=== PATIENT | male | born 1955 | race Caucasian/White ===

== ENCOUNTER 2020-11-22 11:09 | Inpatient (IN) | payer MEDICAID ==
[~2020-11-22] VITALS: Ht 170.2 cm; Wt 92.6 kg
[~2020-11-22 11:09] MED LIST: AMLO-489 PO; ASPI-394 PO; BENA40TA8 PO; ERGO1CAP6 PO; HYDR-2551 PO; METF-370 PO; METO-6 PO
[2020-11-22] MEDS ORDERED: SODIUM CHLORIDE 0.9% 1,000 ML IV ONE (11:45)
[2020-11-22 12:32] LABS: Basophils # (auto) 0 10 ^3/uL (0-0.2); Basophils % (auto) 0.3 % (0.0-2.0); Eosinophils # (auto) 0 10 ^3/uL (0-0.8); Eosinophils % (auto) 0.1 % (0.0-7.0); Hematocrit 27.1 % (41.0-53.0); Hemoglobin 9.1 g/dL (13.5-17.5); Lymphocytes # (auto) 0.5 10 ^3/uL (0.4-5.4); Lymphocytes % (auto) 3.3 % (10.0-50.0); Mean Corpuscular Hemoglobin 31.3 pg (28.0-32.0); Mean Corpuscular Hgb Conc. 33.7 g/dL (32.0-36.0); Mean Corpuscular Volume 92.8 fL (80.0-100.0); Monocytes # (auto) 0.6 10 ^3/uL (0-1.3); Monocytes % (auto) 4.7 % (0.0-12.0); Neutrophils # (auto) 12.6 10 ^3/uL (1.6-8.6); Neutrophils % (auto) 91.6 % (37.0-80.0); Platelet Count (auto) 368 10^3/uL (140-450); Red Blood Cells 2.92 10^6/uL (4.5-5.90); Red Cell Distribution Width 13.4 % (11.8-14.3); White Blood Cell 13.7 10^3/uL (4.4-10.8)
[2020-11-22 12:49] LABS: INR 1.1 (0.9-1.15); Partial Thromboplastin Time 33.3 sec (23.0-31.2)
[2020-11-22 12:56] LABS: Albumin 2.8 g/dL (3.4-5.0); Anion Gap 15 (5-15); Blood Urea Nitrogen 74 mg/dL (7-18); Calcium 7.8 mg/dL (8.5-10.1); Carbon Dioxide 21 mmol/L (21-32); Chloride 98 mmol/L (98-107); Glucose 96 mg/dL (74-106); Potassium 3.5 mmol/L (3.5-5.1); Sodium 134 mmol/L (136-145)
[2020-11-22 13:05] LABS: Alanine Aminotransferase 11 U/L (16-61); Alkaline Phosphatase 59 U/L (45-117); Aspartate Aminotransferase 6 U/L (15-37); BUN/Creatinine Ratio 3.9; Bilirubin, Total 0.4 mg/dL (0.2-1.0); GFR African American 3 mL/min; GFR Non-African American 3 mL/min; Total Protein 7.6 g/dL (6.4-8.2)
[2020-11-22] MEDS ORDERED: DEXTROSE 10% 1,000 ML IV ONE (13:45)
[2020-11-22] MEDS ORDERED: MORPHINE SULF INJ 2 MG/ML SYRINGE 1ML IV PRN ×2 (14:00→20:30)
[2020-11-22] MEDS ORDERED: NITROGLYCERIN 0.4 MG SL TAB SL PRN ×2 (14:00→20:30)
[2020-11-22] MEDS ORDERED: AMLO-496 PO (14:43)
[2020-11-22] MEDS ORDERED: FURO40TA4 PO (14:43)
[2020-11-22] MEDS ORDERED: LOSA-39 PO (14:43)
[2020-11-22] MEDS ORDERED: DOCU1CAP31 PO (14:43)
[2020-11-22] MEDS ORDERED: TERA2CAP45 PO (14:43)
[2020-11-22] MEDS ORDERED: CALC667C PO (14:43)
[2020-11-22] MEDS ORDERED: CALC0.5C PO (14:43)
[2020-11-22] MEDS ORDERED: HYDR50TA15 PO (15:10)
[2020-11-22] MEDS ORDERED: GLIP5TAB12 PO (15:11)
[2020-11-22] MEDS ORDERED: METO-158 PO (15:11)
[2020-11-22] MEDS ORDERED: ATOR20TA50 PO (15:12)
[2020-11-22] MEDS ORDERED: LIDOCAINE 2% JELLY 11ml (GLYDO) UR ONE (15:15)
[2020-11-22 17:22] LABS: Urine WBC None Seen /hpf (0 - 3)
[2020-11-22 17:54] LABS: Urine Bacteria NONE SEEN /hpf (None Seen); Urine Blood TRACE /uL (Negative); Urine Specific Gravity 1.008 (1.001-1.035)
[2020-11-22] MEDS ORDERED: cefTRIAXone 1GM/50ML D5W 50 ML IV ONE (20:30)
[2020-11-22] MEDS ORDERED: D5W/SOD CHLO 0.9% 1,000 ML IV SCH (20:30)
[2020-11-22] MEDS ORDERED: hydrALAZINE HCL 20 MG/ML VL IV PRN (20:30)
[2020-11-22] MEDS ORDERED: DEXTROSE (50%) 50ML SYRG IV PRN (20:30)
[2020-11-22] MEDS: ACCU-CHEK COMFORT CURVE STRIP VI SCH (21:03)
[2020-11-22] MEDS: METOPROLOL TARTRATE 50 MG TAB PO SCH (21:17)
[2020-11-22] MEDS ORDERED: InsuLIN REG 1unit/0.01ml Soln (100units/ml) SC SCH (22:00)
[2020-11-23] MEDS: ACCU-CHEK COMFORT CURVE STRIP VI SCH ×5 (06:08→21:00)
[2020-11-23] MEDS: FUROSEMIDE 40 MG/4 ML VIAL IV SCH ×2 (06:30→18:00)
[2020-11-23 06:38] LABS: INR 1.12 (0.9-1.15); Partial Thromboplastin Time 33.8 sec (23.0-31.2)
[2020-11-23 06:41] LABS: Potassium 3.9 mmol/L (3.5-5.1)
[2020-11-23 06:51] LABS: Basophils # (auto) 0.1 10 ^3/uL (0-0.2); Basophils % (auto) 0.6 % (0.0-2.0); Eosinophils # (auto) 0.1 10 ^3/uL (0-0.8); Eosinophils % (auto) 0.6 % (0.0-7.0); Hemoglobin 8.8 g/dL (13.5-17.5); Lymphocytes % (auto) 10.2 % (10.0-50.0); Mean Corpuscular Hemoglobin 31.2 pg (28.0-32.0); Mean Corpuscular Hgb Conc. 33.7 g/dL (32.0-36.0); Mean Corpuscular Volume 92.6 fL (80.0-100.0); Monocytes # (auto) 0.7 10 ^3/uL (0-1.3); Monocytes % (auto) 7.6 % (0.0-12.0); Neutrophils # (auto) 7.8 10 ^3/uL (1.6-8.6); Platelet Count (auto) 380 10^3/uL (140-450); Red Blood Cells 2.81 10^6/uL (4.5-5.90); Red Cell Distribution Width 13.6 % (11.8-14.3); White Blood Cell 9.6 10^3/uL (4.4-10.8)
[2020-11-23] MEDS: InsuLIN REG 1unit/0.01ml Soln (100units/ml) SC SCH ×4 (07:00→20:59)
[2020-11-23] MEDS: DEXTROSE 10% 1,000 ML IV SCH (07:05)
[2020-11-23 07:24] LABS: Albumin 2.3 g/dL (3.4-5.0); Bilirubin, Total 0.4 mg/dL (0.2-1.0); Calcium 7.4 mg/dL (8.5-10.1); Total Protein 6.5 g/dL (6.4-8.2)
[2020-11-23] MEDS: cefTRIAXone 1GM/50ML D5W 50 ML IV SCH (08:53)
[2020-11-23] MEDS: ASPirin 81 mg TAB PO SCH (08:59)
[2020-11-23] MEDS: ATORVASTATIN 20 MG TAB PO SCH (09:00)
[2020-11-23] MEDS: METOPROLOL TARTRATE 50 MG TAB PO SCH ×2 (09:00→20:59)
[2020-11-23] MEDS: CALCIUM ACETATE 667 MG CAP PO SCH ×3 (09:37→18:27)
[2020-11-23 10:10] LABS: Phosphorus 11.8 mg/dL (2.5-4.90)
[2020-11-23 16:00] VITALS: BP 105/56
[2020-11-23] MEDS: TAMSULOSIN HYDROCHLORIDE 0.4 MG CAP PO SCH ×2 (18:00→18:27)
[2020-11-23] MEDS: Glucerna Carbsteady SHAKE Vanilla 8oz PO SCH (18:26)
[2020-11-23 22:00] VITALS: BP 127/66
[2020-11-24] MEDS: ACCU-CHEK COMFORT CURVE STRIP VI SCH ×6 (01:54→21:57)
[2020-11-24 05:00] VITALS: BP 127/70
[2020-11-24] MEDS: FUROSEMIDE 40 MG/4 ML VIAL IV SCH ×2 (05:34→18:11)
[2020-11-24] MEDS: DEXTROSE 10% 1,000 ML IV SCH (06:15)
[2020-11-24] MEDS: InsuLIN REG 1unit/0.01ml Soln (100units/ml) SC SCH ×4 (07:00→21:57)
[2020-11-24 07:38] VITALS: BP 130/69
[2020-11-24 07:40] LABS: Basophils # (auto) 0.1 10 ^3/uL (0-0.2); Basophils % (auto) 0.6 % (0.0-2.0); Eosinophils # (auto) 0.2 10 ^3/uL (0-0.8); Hematocrit 26.1 % (41.0-53.0); Hemoglobin 8.7 g/dL (13.5-17.5); Lymphocytes # (auto) 1.2 10 ^3/uL (0.4-5.4); Lymphocytes % (auto) 13.9 % (10.0-50.0); Mean Corpuscular Hemoglobin 30.9 pg (28.0-32.0); Mean Corpuscular Hgb Conc. 33.2 g/dL (32.0-36.0); Mean Corpuscular Volume 93.3 fL (80.0-100.0); Monocytes # (auto) 0.8 10 ^3/uL (0-1.3); Monocytes % (auto) 9.5 % (0.0-12.0); Neutrophils # (auto) 6.2 10 ^3/uL (1.6-8.6); Platelet Count (auto) 342 10^3/uL (140-450); Red Cell Distribution Width 13.3 % (11.8-14.3); White Blood Cell 8.4 10^3/uL (4.4-10.8)
[2020-11-24 07:53] LABS: Calcium 7.7 mg/dL (8.5-10.1); Potassium 4.7 mmol/L (3.5-5.1)
[2020-11-24 08:04] LABS: Albumin 2.3 g/dL (3.4-5.0); BUN/Creatinine Ratio 4.5; Bilirubin, Total 0.4 mg/dL (0.2-1.0); Total Protein 6.1 g/dL (6.4-8.2)
[2020-11-24] MEDS: Glucerna Carbsteady SHAKE Vanilla 8oz PO SCH ×3 (10:14→18:11)
[2020-11-24] MEDS: CALCIUM ACETATE 667 MG CAP PO SCH ×3 (10:14→18:12)
[2020-11-24] MEDS: METOPROLOL TARTRATE 50 MG TAB PO SCH ×2 (10:15→22:05)
[2020-11-24] MEDS: cefTRIAXone 1GM/50ML D5W 50 ML IV SCH (10:15)
[2020-11-24] MEDS: ASPirin 81 mg TAB PO SCH (10:15)
[2020-11-24] MEDS: ATORVASTATIN 20 MG TAB PO SCH (10:15)
[2020-11-24 15:50] VITALS: BP 137/74
[2020-11-24] MEDS: PERITONEAL DIALYSIS 2.5% SOLN 2,000 ML IP SCH (17:57)
[2020-11-24] MEDS: TAMSULOSIN HYDROCHLORIDE 0.4 MG CAP PO SCH (18:11)
[2020-11-24] MEDS ORDERED: EPOETIN ALFA 10,000 UNIT/1 ML VIAL SC ONE (21:00)
[2020-11-24 22:00] VITALS: BP 122/60
[2020-11-25] MEDS: ACCU-CHEK COMFORT CURVE STRIP VI SCH ×6 (01:50→23:24)
[2020-11-25 05:00] VITALS: BP 101/52
[2020-11-25] MEDS: PERITONEAL DIALYSIS 2.5% SOLN 2,000 ML IP SCH ×4 (05:42→21:36)
[2020-11-25 05:45] LABS: Basophils # (auto) 0.1 10 ^3/uL (0-0.2); Basophils % (auto) 0.6 % (0.0-2.0); Eosinophils # (auto) 0.3 10 ^3/uL (0-0.8); Eosinophils % (auto) 3.1 % (0.0-7.0); Hematocrit 25.5 % (41.0-53.0); Hemoglobin 8.5 g/dL (13.5-17.5); Lymphocytes # (auto) 1.4 10 ^3/uL (0.4-5.4); Lymphocytes % (auto) 15.4 % (10.0-50.0); Mean Corpuscular Hgb Conc. 33.4 g/dL (32.0-36.0); Mean Corpuscular Volume 92.7 fL (80.0-100.0); Monocytes # (auto) 0.8 10 ^3/uL (0-1.3); Monocytes % (auto) 8.7 % (0.0-12.0); Neutrophils # (auto) 6.7 10 ^3/uL (1.6-8.6); Neutrophils % (auto) 72.2 % (37.0-80.0); Platelet Count (auto) 348 10^3/uL (140-450); Red Blood Cells 2.75 10^6/uL (4.5-5.90); White Blood Cell 9.3 10^3/uL (4.4-10.8)
[2020-11-25] MEDS: DEXTROSE 10% 1,000 ML IV SCH (05:46)
[2020-11-25] MEDS: FUROSEMIDE 40 MG/4 ML VIAL IV SCH ×2 (06:00→18:36)
[2020-11-25 06:07] LABS: Calcium 7.2 mg/dL (8.5-10.1); Potassium 4.3 mmol/L (3.5-5.1)
[2020-11-25] MEDS: InsuLIN REG 1unit/0.01ml Soln (100units/ml) SC SCH ×4 (06:21→23:25)
[2020-11-25 08:00] VITALS: BP 129/64
[2020-11-25 08:26] VITALS: BP 129/64
[2020-11-25] MEDS: Glucerna Carbsteady SHAKE Vanilla 8oz PO SCH ×3 (08:26→18:00)
[2020-11-25] MEDS: cefTRIAXone 1GM/50ML D5W 50 ML IV SCH (08:26)
[2020-11-25] MEDS: CALCIUM ACETATE 667 MG CAP PO SCH ×3 (08:26→18:35)
[2020-11-25] MEDS: ATORVASTATIN 20 MG TAB PO SCH (10:37)
[2020-11-25] MEDS: METOPROLOL TARTRATE 50 MG TAB PO SCH ×2 (10:37→23:21)
[2020-11-25] MEDS: ASPirin 81 mg TAB PO SCH (10:37)
[2020-11-25 16:00] VITALS: BP 131/55
[2020-11-25] MEDS: TAMSULOSIN HYDROCHLORIDE 0.4 MG CAP PO SCH (18:35)
[2020-11-26] MEDS: ACCU-CHEK COMFORT CURVE STRIP VI SCH ×5 (02:03→22:07)
[2020-11-26] MEDS: PERITONEAL DIALYSIS 2.5% SOLN 2,000 ML IP SCH ×4 (04:26→22:07)
[2020-11-26] MEDS: FUROSEMIDE 40 MG/4 ML VIAL IV SCH (06:41)
[2020-11-26] MEDS: DEXTROSE 10% 1,000 ML IV SCH (06:45)
[2020-11-26] MEDS: InsuLIN REG 1unit/0.01ml Soln (100units/ml) SC SCH ×4 (06:48→22:00)
[2020-11-26] MEDS: Glucerna Carbsteady SHAKE Vanilla 8oz PO SCH ×3 (08:00→18:00)
[2020-11-26] MEDS: CALCIUM ACETATE 667 MG CAP PO SCH ×3 (08:00→18:00)
[2020-11-26 08:18] VITALS: BP 105/61
[2020-11-26 09:17] LABS: Basophils # (auto) 0 10 ^3/uL (0-0.2); Basophils % (auto) 0.3 % (0.0-2.0); Eosinophils # (auto) 0.3 10 ^3/uL (0-0.8); Eosinophils % (auto) 2.4 % (0.0-7.0); Hematocrit 26.6 % (41.0-53.0); Hemoglobin 8.9 g/dL (13.5-17.5); Lymphocytes % (auto) 8.8 % (10.0-50.0); Mean Corpuscular Hemoglobin 30.8 pg (28.0-32.0); Mean Corpuscular Hgb Conc. 33.5 g/dL (32.0-36.0); Monocytes % (auto) 8.8 % (0.0-12.0); Neutrophils # (auto) 9.2 10 ^3/uL (1.6-8.6); Neutrophils % (auto) 79.7 % (37.0-80.0); Platelet Count (auto) 386 10^3/uL (140-450); Red Blood Cells 2.89 10^6/uL (4.5-5.90); White Blood Cell 11.5 10^3/uL (4.4-10.8)
[2020-11-26 09:32] LABS: Calcium 8.2 mg/dL (8.5-10.1); Potassium 4.1 mmol/L (3.5-5.1)
[2020-11-26 09:40] LABS: BUN/Creatinine Ratio 5.2
[2020-11-26 09:50] LABS: INR 1.12 (0.9-1.15)
[2020-11-26] MEDS: METOPROLOL TARTRATE 50 MG TAB PO SCH ×2 (10:00→22:33)
[2020-11-26] MEDS: ASPirin 81 mg TAB PO SCH (10:15)
[2020-11-26] MEDS: ATORVASTATIN 20 MG TAB PO SCH (10:15)
[2020-11-26] MEDS: cefTRIAXone 1GM/50ML D5W 50 ML IV SCH (10:15)
[2020-11-26] MEDS ORDERED: DEXTROSE (50%) 50ML SYRG IV PRN (10:30)
[2020-11-26] MEDS ORDERED: FUROSEMIDE 40 MG/4 ML VIAL IV ONE (10:45)
[2020-11-26] MEDS ORDERED: ONDANSETRON HCL 4 MG/2 ML VIAL IV PRN (15:15)
[2020-11-26 15:47] VITALS: BP 93/51
[2020-11-26] MEDS: TAMSULOSIN HYDROCHLORIDE 0.4 MG CAP PO SCH (18:00)
[2020-11-26 22:00] VITALS: BP 113/60
[2020-11-27] MEDS: PERITONEAL DIALYSIS 2.5% SOLN 2,000 ML IP SCH ×4 (03:50→15:30)
[2020-11-27 04:00] VITALS: BP 106/60
[2020-11-27] MEDS: InsuLIN REG 1unit/0.01ml Soln (100units/ml) SC SCH ×2 (06:10→11:30)
[2020-11-27] MEDS: ACCU-CHEK COMFORT CURVE STRIP VI SCH ×2 (06:10→11:30)
[2020-11-27 06:59] LABS: Basophils # (auto) 0.1 10 ^3/uL (0-0.2); Basophils % (auto) 0.7 % (0.0-2.0); Eosinophils # (auto) 0.2 10 ^3/uL (0-0.8); Eosinophils % (auto) 2.1 % (0.0-7.0); Hematocrit 26.5 % (41.0-53.0); Mean Corpuscular Hemoglobin 31.2 pg (28.0-32.0); Mean Corpuscular Hgb Conc. 33.9 g/dL (32.0-36.0); Mean Corpuscular Volume 92.1 fL (80.0-100.0); Monocytes % (auto) 10.3 % (0.0-12.0); Neutrophils # (auto) 7.8 10 ^3/uL (1.6-8.6); Neutrophils % (auto) 76.9 % (37.0-80.0); Platelet Count (auto) 406 10^3/uL (140-450); Red Blood Cells 2.88 10^6/uL (4.5-5.90); Red Cell Distribution Width 12.8 % (11.8-14.3); White Blood Cell 10.1 10^3/uL (4.4-10.8)
[2020-11-27 07:39] LABS: Potassium 3.8 mmol/L (3.5-5.1)
[2020-11-27 08:00] VITALS: BP 105/55
[2020-11-27] MEDS: Glucerna Carbsteady SHAKE Vanilla 8oz PO SCH ×2 (08:00→12:00)
[2020-11-27 08:03] LABS: BUN/Creatinine Ratio 5.2; Calcium 8.2 mg/dL (8.5-10.1)
[2020-11-27] MEDS: CALCIUM ACETATE 667 MG CAP PO SCH ×2 (08:37→12:08)
[2020-11-27] MEDS: cefTRIAXone 1GM/50ML D5W 50 ML IV SCH (08:39)
[2020-11-27] MEDS: METOPROLOL TARTRATE 50 MG TAB PO SCH (10:00)
[2020-11-27] MEDS: ASPirin 81 mg TAB PO SCH (12:06)
[2020-11-27] MEDS: ATORVASTATIN 20 MG TAB PO SCH (12:06)
== END 2020-11-27 16:00 | disposition home or self-care (01) | DRG 420 ==
LOC: EDBD 11:09 → ER 11:09 → TELE 11:10 → TELE-EAST 11-23 12:40 → TELE-CENTR 11-24 16:00
PROVIDERS: ADMIT Hospitalist; ATTEND Internal Medicine
PROC: 3E1M39Z Irrigation of Peritoneal Cavity using Dialysate, Percutaneous Approach (ICD-10-PCS; principal; 2020-11-24)
PROC: 3E1M39Z Irrigation of Peritoneal Cavity using Dialysate, Percutaneous Approach (ICD-10-PCS; 2020-11-25)
DX: E11.649 Type 2 diabetes mellitus with hypoglycemia without coma (principal); G93.41 Metabolic encephalopathy; N18.6 End stage renal disease; R33.9 Retention of urine, unspecified; C95.10 Chronic leukemia of unspecified cell type not having achieved remission; E11.21 Type 2 diabetes mellitus with diabetic nephropathy; N17.9 Acute kidney failure, unspecified; D63.1 Anemia in chronic kidney disease; E66.9 Obesity, unspecified; N32.0 Bladder-neck obstruction; E44.0 Moderate protein-calorie malnutrition; E88.09 Other disorders of plasma-protein metabolism, not elsewhere classified; N13.30 Unspecified hydronephrosis; E83.39 Other disorders of phosphorus metabolism; E78.5 Hyperlipidemia, unspecified; Z99.2 Dependence on renal dialysis; Z20.822 Contact with and (suspected) exposure to COVID-19; Z88.2 Allergy status to sulfonamides; Z68.32 Body mass index [BMI] 32.0-32.9, adult; E11.22 Type 2 diabetes mellitus with diabetic chronic kidney disease; I12.0 Hypertensive chronic kidney disease with stage 5 chronic kidney disease or end stage renal disease; I25.10 Atherosclerotic heart disease of native coronary artery without angina pectoris; I25.2 Old myocardial infarction; N25.81 Secondary hyperparathyroidism of renal origin; N28.1 Cyst of kidney, acquired; Z79.4 Long term (current) use of insulin; Z82.49 Family history of ischemic heart disease and other diseases of the circulatory system; N40.1 Benign prostatic hyperplasia with lower urinary tract symptoms
CPT/HCPCS: 36415; 51702; 71045; 74176; 76775; 78707; 80048; 80053; 81001; 82962; 83036; 83735; 83880; 83970; 84100; 84154; 84443; 84484; 85025; 85610; 85730; 87086; 87426; 93005; 96360; 97163; 97530; 99291; G0378; J0696; J0885; J1815; J2405